=== PATIENT | female | born 1985 | race Caucasian/White ===

== ENCOUNTER → 2020-10-20 00:09 | Outpatient (CLI) | payer OTHER, SELFPAY ==
[2020-10-20 19:26] LABS: SARS-CoV-2 RNA PCR Negative
== END ==
PROVIDERS: PCP Family Medicine; Visit Provider Obstetrics & Gynecology
DX: Z01.812 Encounter for preprocedural laboratory examination (principal); Z20.822 Contact with and (suspected) exposure to COVID-19
CPT/HCPCS: C9803; U0003; U0005

== ENCOUNTER 2020-10-24 01:42 | Day surgery (SDC) | payer OTHER, SELFPAY ==
[2020-10-11 15:14] VITALS: BMI 27.1
--- NOTE | 2020-10-23 13:47 | WPDANESEPPF ---
Anes - Initial Pre Proc Eval Procedure: Operation Date: 10/24/20 13:00 Proposed Procedures p Laparoscopic Bilateral Tubal Sterilization with Fallopian Rings - Talat Alvarez MD Date/Time: 10/23/20 13:47 Surgeon: Talat Alvarez MD Pre Op Diagnosis: Desires Sterilization Patient Data Age: 35 Gender: F Height: 1.65 m Weight: 73.95 kg Allergies Allergy/AdvReac Type Severity Reaction Status Date / Time No Known Allergies Verified 10/24/20 11:06 Home Medications Medication Instructions Recorded Confirmed Type cwtuyojmoxwz-zhq-pbiz-FA-vit K 1 tablet PO DAILY 10/11/20 10/24/20 History [Adults Multivitamin] Patient hx anesthesia problems: none Family hx anesthesia problems: none PMFSH Social History Social History Smoking status: Never smoker Living arrangements: with family Spiritual care concerns: No Anes - Eval Final PreProcedure Day of Procedure 10/23/20 13:47 Patient weight: overweight Heart: regular rate and rhythm Lungs: clear to auscultation and normal air movement Airway: Mallampati scale class II Neurological: alert and oriented Last oral intake: >/= 8 hours ASA classification: II Emergent: no Anesthetic plan: proceed Anesthesia type and monitoring: general ETT Informed Consent: The patient's anesthetic plan and its attendant risks and benefits were discussed with the patient/family/POA. Questions were solicited and answers provided to the satisfaction of the patient/family/POA.
[2020-10-24] VITALS (8 sets, daily range): BP systolic 112–130; BP diastolic 69–86; PULSE 58–89; RESP 12–18; TEMP 36.3–36.5; O2SAT 98–100; BMI 26.7
[2020-10-24] MEDS: KETOROLAC 15 MG/ML VIAL (*BKC) IV PUSH (11:46)
[2020-10-24] MEDS: LACTATED RINGERS 1,000 ML 30 ML IV CONT ×2 (11:46→14:00)
[2020-10-24] MEDS: ACETAMINOPHEN 500 MG TABLET 1000 MG PO (11:46)
--- NOTE | 2020-10-24 12:57 | PM.IMHP ---
H&P: HPI History of Present Illness Date/Time: 10/24/20 12:57 35 y/o here for laparoscopic bilateral tubal ligation. She does not desire any future childbearing. Chief Complaint: Here to have my tubes tied Review of Systems Review of Systems: All systems reviewed & are unremarkable except as noted in HPI and below PMFSH Surgical History Surgical History History of delivery Social History Social History Smoking status: Never smoker Living arrangements: with family Spiritual care concerns: No Meds Home Medications and Allergies Home Medications Medication Instructions Recorded Confirmed Type coqytrvxweyc-ars-xvmu-FA-vit K 1 tablet PO DAILY 10/11/20 10/24/20 History [Adults Multivitamin] Allergies Allergy/AdvReac Type Severity Reaction Status Date / Time No Known Allergies Verified 10/24/20 11:06 Vital Signs Vital Signs - 24 hr 10/24/20 11:49 Temperature 36.5 C Pulse Rate 75 Respiratory Rate 16 Blood Pressure 112/73 Pulse Oximetry 100 Exam Const: Orientation/consciousness: patient oriented x3 Other: Well-developed, well-nourished female in no acute distress. Neck: Thyroid: thyroid normal Lymphatic: no lymphadenopathy noted (in neck, axilla or inguinal nodes) Resp: Effort & Inspection: normal respiratory effort Auscultation: clear to auscultation bilaterally Cardio: Rate: regular rate Rhythm: regular rhythm Heart sounds: S1 normal heart sound present and S2 normal heart sound present GI: Other: ABD: Soft, nontender, nondistended. No guarding or rebound tenderness. No hepatosplenomegaly. : General: Yes no CVA tenderness Other: External genitalia: normal female hair distribution, without lesion. Urethral meatus: no lesion, non prolapsed. Bladder: no mass, nontender Vagina: well-estrogenized, without lesion or discharge. No cystocele or rectocele. Cervix: no lesion or discharge. Uterus: small, anteverted, freely mobile, nontender Adnexa: no mass or tenderness. Anus/perineum: no lesions, nontender Back/Spine/Pelvis: Back: no CVA tenderness Skin: General skin exam: normal color and no rashes or lesions noted Neuro: General: patient oriented x3 Extrem: Other: Extremities: nontender with no edema Psych: Mental Status: mental status grossly normal Affect: normal affect Assessment and Plan Assessment and plan (1) Unwanted fertility: Code(s): Z30.09 - Encounter for other general counseling and advice on contraception Status: Acute Assessment and Plan: A: Desired sterility. P: She understands there are temporary methods of contraception available to her. She understands that there are nonsurgical options as well as surgical options. She understands that tubal ligation will render her permanently sterile. She understands that there is a failure rate associated with tubal ligation, as well as an inherent ectopic gestation risk. Furthermore, she understands risks of surgery to include risks of anesthesia, risks of pain, infection, bleeding, blood products, thromboembolic phenomena and damage to adjacent structures such as bowel, bladder, ureters, blood vessels and nerves. She understands all these risks and elects to proceed with laparoscopic bilateral tubal ligation. She has received the [employer] pamphlet on surgical sterilization.
--- NOTE | 2020-10-24 12:59 | WPDHPUPDATE1 ---
History and Physical Update Update Date/Time: 10/24/20 12:59 History and Physical has been reviewed, including an updated exam of the patient. There are NO changes in the patient's condition. Risks, benefits, and alternatives have been discussed and questions answered. Patient agrees to proceed with procedure.
--- NOTE | 2020-10-24 14:01 | P.OP_ITS ---
Procedure Note - Detailed Date of Procedure 10/24/20 Pre-op Diagnosis Desires Sterilization Post-op Diagnosis same Procedure Performed Laparoscopic bilateral tubal ligation with Falope rings Surgeon Talat Alvarez MD Anesthesia general and local Indications Desired sterility Findings Adhesion between the pelvic peritoneum and the serosal surface of the anterior uterus. Small, simple, functional-appearing cysts of bilateral ovaries. Otherwise, normal-appearing uterus, tubes, ovaries, bilateral round and uterosacral ligaments, anterior and posterior cul de sac, vermiform appendix and liver. Description of Procedure The patient was taken to the operating room where general endotracheal anesthesia was administered. She was prepared and draped in the usual sterile fashion in dorsal lithotomy position. The bladder was drained with a red rubber catheter. A sterile speculum was placed into the vagina. The anterior lip of the cervix was grasped with a single-tooth tenaculum. The acorn uterine manipul ator was placed. The speculum was withdrawn. Gloves were changed and attention was turned the abdomen. An infraumbilical skin incision was made with a scalpel. The abdomen was tented and a 5mm bladeless trocar was advanced under direct laparoscopic visualization. Pneumoperitoneum was administered using carbon dioxide gas. A survey of the pelvis and abdomen revealed the findings noted above. A second skin incision was made in the midline above the symphysis pubis and an 8mm bladeless trocar was advanced under direct laparoscopic visualization. The fallopian tube on the right side was followed out to the fimbriated end for identification. It was then grasped in the midportion with the Falope ring applicator. The Falope ring was tented applied. A good loop of tube was noted to be distal to the ring. Hemostasis was excellent. The device was reloaded and the contralateral tube was similarly identified and ligated. An excellent application was noted here as well. A total of 3mL of 1% lidocaine was infiltrated into the serosa of the proximal tubes for postoperative anesthesia. The ports were withdrawn. The gas was allowed to escape. The skin incisions were reapproximated using interrupted subcuticular sutures of 4 0 Monocryl. Dermaflex was applied externally. The vaginal instrumentation was withdrawn and hemostasis was excellent here as well. Sponge, lap, needle and instrument counts were correct. The patient was awakened and taken to recovery room in stable condition. I was present and scrubbed through the entire procedure. Implants Falope rings Estimated Blood Loss 5 Drains No Packing No Pathology none sent Complications None Condition stable Disposition PACU
[2020-10-24] MEDS: fentaNYL CITRATE INJ (*CRX) 100 MCG/2 ML VIAL 25 MCG IV PUSH ×4 (14:19→14:40)
--- NOTE | 2020-10-24 14:43 | SUR.PHASEI ---
1440- left message for spouse regarding pt update.
[2020-10-24] MEDS: oxyCODONE HCL (*CRX) 5 MG TAB IR PO (15:31)
== END 2020-10-24 16:20 | disposition home or self-care (01) ==
PROVIDERS: PCP Family Medicine; Visit Provider Obstetrics & Gynecology
PROC: (CPT 58671; principal; 2020-10-24 13:00)
DX: Z30.2 Encounter for sterilization (principal); N83.292 Other ovarian cyst, left side; N83.291 Other ovarian cyst, right side
CPT/HCPCS: 58671; A4264; A9270; C9803; J0330; J1100; J1885; J2250; J2405; J2704; J3010; J7120; U0003; U0005

== ENCOUNTER 2025-02-14 17:51 | Emergency (ER) | payer OTHER, SELFPAY ==
--- NOTE | 2025-02-14 17:52 | ED.LOWEXIN ---
HPI - Extremity Injury (Lower) General Chief Complaint: Extremity Injury, Lower Stated Complaint: R KNEE INJURY Time Seen by Provider: 02/14/25 17:52 Source: patient Mode of arrival: ambulatory Limitations: no limitations History of Present Illness HPI Narrative: Darlene is a 39-year-old female patient presenting to the clinic today with complaints of right lateral knee pain times. She reports she was playing [employer] soccer game on Thursday and twisted her knee. Is having right lateral knee pain. Has been taking ibuprofen for pain. Rates pain 1/10 at rest and 7/10 with movement. Pain worse with ambulation. Related Data Home Medications ?Medication ?Instructions ?Recorded ?Confirmed ?Last Taken ?Type multivit with minerals-iron 18 1 tablet PO DAILY 10/11/20 10/24/20 10/15/20 History mg-folic ac 400 mcg-vit K 25 mcg tablet (Adults Multivitamin) Allergies Allergy/AdvReac Type Severity Reaction Status Date / Time No Known Allergies Allergy Verified 02/14/25 18:05 Review of Systems Review of Systems: Pertinent positives per HPI. Patient denies any fever, chills, rash, headache, visual changes, dizziness, cough, runny nose, sore throat, shortness of breath, chest pain, palpitations, nausea, vomiting, diarrhea, constipation, abdominal pain, or any urinary issues. PMFSH Surgical History Surgical History History of delivery Social History Social History Smoking status: Never smoker Living arrangements: with family Spiritual care concerns: No Comments At the time of my signature, I reviewed and agree with the nursing past medical, surgical, social, and family history. There is no relevant family history pertinent to the patient complaint. Exam Narrative: General: Well-developed, well nourished, in no apparent distress Head: Normocephalic, atraumatic. Cardio: Regular rate and rhythm, s1 and s2 normal, no murmur appreciated. Resp: Clear to auscultation bilaterally, no rhonchi, rales, wheezing or rubs. Musculoskeletal: No deformity, right knee has mild-moderate swelling when compared to the left knee, tender to palpation right lateral knee over the LCL, pain with full flexion and extension of the right knee as well as pain with valgus and varus testing over the LCL, no crepitus, grossly normal range of motion, muscle strength strong and equal, peripheral pulse strong, no cyanosis, normal gait and station Course Course Emergency Course: Portions of this record may have been created with voice recognition software. Level of Care: Express Care Visit Vital Signs Vital signs: Vital Signs Temperature 36.6 C 02/14/25 18:02 Pulse Rate 85 02/14/25 18:02 Respiratory Rate 16 02/14/25 18:02 Blood Pressure 157/87 H 02/14/25 18:02 Pulse Oximetry 100 02/14/25 18:02 Temperature 36.6 C 02/14/25 18:02 Pulse Rate 85 02/14/25 18:02 Respiratory Rate 16 02/14/25 18:02 Blood Pressure 157/87 H 02/14/25 18:02 Pulse Oximetry 100 02/14/25 18:02 Vital signs reviewed MDM - Extremity Injury (Lower) MDM Narrative Medical decision making narrative: At the time of visit patient is resting comfortably on the exam table. Patient appears to be nontoxic. Complaints of right lateral knee pain times. She reports she was playing [employer] soccer game on Thursday and twisted her knee. Is having right lateral knee pain. Has been taking ibuprofen for pain. Rates pain 1/10 at rest and 7/10 with movement. Pain worse with ambulation. On exam right knee has mild-moderate swelling when compared to the left knee, tender to palpation right lateral knee over the LCL, pain with full flexion and extension of the right knee as well as pain with valgus and varus testing over the LCL, no crepitus, grossly normal range of motion, muscle strength strong and equal, peripheral pulse strong, Plan: I suspect patient likely has a LCL sprain. Recommend ibuprofen 800 mg every 8 hours and Tylenol 1000 mg every 8 hours as needed for pain. Rest, ice, and elevate. Patient has Barry wrap at home. Follow-up with PCP/Dr. Avila if symptoms persist.Supportive measures were discussed with the patient and they voiced understanding discharge instructions and agrees to treatment plan. Return precautions reviewed Differential Diagnosis Differential diagnosis: Likely acute internal derangement of knee and other (Knee sprain, tibia fracture, femur fracture, patella fracture,) Discharge Plan Discharge Clinical Impression: Knee LCL sprain Qualifiers: Encounter type: initial encounter Laterality: right Qualified Code(s): S83.421A - Sprain of lateral collateral ligament of right knee, initial encounter Patient Disposition: Home Condition: Stable Instructions: Antibiotic Form, Knee Sprain (ED) Additional Instructions: Rest, ice, elevate, and wear barry wrap as directed May take Ibuprofen 800 every 8 hours as needed for pain as discussed x 10days. May take Tylenol 1000mg every 8 hours as needed for pain Gradually bear weight May apply Aspercreme, blue emu, or lidocaine to the affected area No running or sports until healed. Follow up with your PCP if symptoms persist more than 1 week. May follow-up with Dr. Avila- orthopaedic provider is symptoms persist. Call office to schedule an appointment Patient Language: Tamazight Prescriptions: No Action Adults Multivitamin 18 mg iron-400 mcg-25 mcg Tablet 1 tablet PO DAILY hydrocodone-acetaminophen 5-325 mg tablet 1 - 2 tablet PO Q6H PRN (Reason: pain) Qty: 30 0RF Follow-up/Referrals: Jovanni Avila MD [Physician, Orthopedics] - 3 Days Clinical Impression: Knee LCL sprain UNKNOWN,DOCTOR [Non-Staff] Time of Disposition: 18:06 Quality NIHSS Nursing Documentation ED NIHSS nursing documentation: reviewed/agree
[2025-02-14 18:02] VITALS: BP 157/87; PULSE 85; RESP 16; TEMP 36.6; O2SAT 100
== END 2025-02-14 18:00 | disposition home or self-care (01) ==
PROVIDERS: Emergency Provider Nurse Practitioner Family; PCP Nurse Practitioner Family
DX: S83.421A Sprain of lateral collateral ligament of right knee, initial encounter (principal); X50.1XXA Overexertion from prolonged static or awkward postures, initial encounter; Y93.66 Activity, soccer
CPT/HCPCS: 99212; G0463